=== PATIENT | female | born 1965 | race Caucasian/White ===

== ENCOUNTER 2017-07-11 21:43 | Emergency (ER) | payer OTHER ==
[~2017-07-11] VITALS: Ht 175.3 cm; Wt 88.5 kg
[2017-07-11] MEDS ORDERED: TDAP DIPH,PERTUSS,TET VAC/PF 0.5 ML DISP.SYRIN IM ONE (22:31)
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
[2017-07-11] MEDS: TDAP DIPH,PERTUSS,TET VAC/PF 0.5 ML DISP.SYRIN IM ONE (22:40)
[2017-07-11] MEDS: LIDOCAINE HCL 1% 20 ML VIAL IJ ONE (22:40)
--- NOTE | 2017-07-12 | NUR ---
Patient placed on [address] scan.
--- NOTE | 2017-07-12 00:05 | NUR ---
Pt out of ER for CT
[2017-07-12] MEDS ORDERED: IBUPROFEN 800 MG TABLET ONE (00:16)
--- NOTE | 2017-07-12 00:20 | NUR ---
Patient back to ER from CT, restraints released.
[2017-07-12] MEDS: IBUPROFEN 800 MG TABLET PO ONE (00:22)
[2017-07-12] MEDS ORDERED: HYDROCODONE/APAP 5-325MG TABLET ONE (00:24)
[2017-07-12] MEDS: HYDROCODONE/APAP 5-325MG TABLET PO ONE (00:30)
--- NOTE | 2017-07-12 00:30 | NUR ---
Cleaned up patient and d/c IV on left hand.
--- NOTE | 2017-07-12 00:34 | NUR ---
Released patient to [facility] officer Karol Pierre #[id number] custody.
--- NOTE | 2017-07-12 00:40 | NUR ---
Flor cameron in EDM - 07/12/17 at 0336 by YECENIA Patient back to ER from CT. Restraint released.
--- NOTE | 2017-07-12 00:45 | NUR ---
Assisted patient to the bathroom. Patient ambulated with steady gait.
[2017-07-12 00:56] VITALS: BP 117/85
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
== END 2017-07-12 02:00 ==
LOC: ER 21:45
DX: S01.81XA Laceration without foreign body of other part of head, initial encounter (principal); W25.XXXA Contact with sharp glass, initial encounter; Y92.89 Other specified places as the place of occurrence of the external cause; Y93.89 Activity, other specified; Y99.8 Other external cause status
CPT/HCPCS: 70450; 72125; 90715; A4217; A4663; J3490